=== PATIENT | male | born 1955 | race Caucasian/White ===

== ENCOUNTER 2017-01-06 14:57 | Observation (INO) | payer BC, OTHER ==
[~2017-01-06] VITALS: Ht 188 cm; Wt 110.0 kg
[~2017-01-06 14:57] MED LIST: ASPI81 PO; CARV6.25 PO; DICL25TA PO; DOCU1CAP39 PO; GABA300C3 PO; GLIP10TA6 PO; HYDR10SO PO; LACT PO; LISI5 PO; LOTR15T TOPICAL; NOVOLOGMXP SQ; PRAV20TA PO; SITA100 PO; [UNRECOGNIZED DRUG - CODE] LEFT EAR
[2017-01-06 14:59] VITALS: BP 117/60; PULSE 82; RESP 18; TEMP 97.7; O2SAT 97
--- NOTE | 2017-01-06 15:32 | PD ---
Physical Exam Time Seen by Provider: 15:29 Narrative 61yo M c/o SOB x 4months. L sided chest pain and numbness of L arm x 2 days ago. Took a nitro and was fine the next morning. Reports a little chest pain now. No acute distress in triage. Speaking full sentences w/o difficulty. Patient stable. Patient seen in triage. Awaiting bed placement. Data Data Last Documented VS Vital Signs Date Time Temp Pulse Resp B/P Pulse Ox O2 Delivery O2 Flow Rate FiO2 01/06/17 14:59 97.7 82 18 117/60 97 MDM Supervised Visit with CARISSA: Adenike Stephens Jan 06, 2017 15:32
--- NOTE | 2017-01-06 17:28 | PD ---
HPI Chief Complaint: Respiratory Symptoms Time Seen by Provider: 17:28 Travel History International Travel<30 days: No Contact w/Intl Traveler<30days: No Traveled to known affect area: No History of Present Illness HPI 61-year-old male with history of HTN, DM, GERD, chronic bronchitis, right BKA, [place] in October 2016 (S/P stents 2) presents to the ED for evaluation of 3-4 month history of shortness of breath, worsened over the last week. Also endorses a tightness of the chest, left chest pain when lying down, increased GERD symptoms and postnasal drip. He denies radiation of the pain, fever, chills, diaphoresis, nausea or vomiting. He takes a daily aspirin. PFSH Past Medical History Hx Anticoagulant Therapy: Yes Arthritis: No Asthma: No Autoimmune Disease: No Anxiety: No Depression: No Heart Rhythm Problems: No Cancer: No Cardiovascular Problems: Yes (HTN ) High Cholesterol: No Chemotherapy: No Chest Pain: No Congestive Heart Failure: No COPD: No Cerebrovascular Accident: No Diabetes: Yes Diminished Hearing: No Endocrine: Yes GERD: No Genitourinary: No Headaches: Yes Hiatal Hernia: No Hypertension: Yes Immune Disorder: No Implanted Vascular Access Dvce: No Kidney Stones: No Musculoskeletal: No Neurologic: No Psychiatric: No Reproductive: No Respiratory: Yes (CHRONIC BRONCHITIS ) Integumentary: Yes (ECZEMA) Migraines: No Radiation Therapy: No Renal Failure: No Seizures: No Sickle Cell Disease: No Thyroid Disease: No Ulcer: No Past Surgical History Abdominal Surgery: No AICD: No Arteriovenous Shunt: No Cardiac Surgery: No Ear Surgery: No Endocrine Surgery: No Eye Surgery: Yes (cataract ) Genitourinary Surgery: No Gynecologic Surgery: No Insulin Pump: No Joint Replacement: Yes (miniscus repair) Neurologic Surgery: No Oral Surgery: No Pacemaker: No Thoracic Surgery: No Other Surgery: Yes (RBKA 01/28) Social History Alcohol Use: No Tobacco Use: No Substance Use: No Allergies-Medications (Allergen,Severity, Reaction): Coded Allergies: Levaquin (Verified Allergy, Severe, hives, 01/06/17) *MDRO Multi-Drug Resistant Organism (Verified Allergy, Unknown, 03/17/16) MRSA (foot wound) - 10/03/13; MRSA (leg-02/2016) 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 Effient (Prasugrel) 10 Mg Tab 10 Mg PO DAILY Metformin (Metformin HCl) 1,000 Mg Tab 1,000 Mg PO BIDPC With meals Glipizide 10 Mg Tab 10 Mg PO BIDAC Take 30 minutes before a meal Aspirin 81 Mg Chew 81 Mg CHEW DAILY Review of Systems Except as stated in HPI: all other systems reviewed are Neg Physical Exam Narrative GENERAL: Well-nourished, well-developed obese white male in no acute distress. SKIN: Focused skin assessment warm/dry. HEAD: Normocephalic. EYES: No scleral icterus. No injection or drainage. NECK: Supple, trachea midline. No JVD or lymphadenopathy. CARDIOVASCULAR: Regular rate and rhythm without murmurs, gallops, or rubs. 2+ radial pulses bilaterally. RESPIRATORY: Breath sounds are distant, equal bilaterally. No accessory muscle use. GASTROINTESTINAL: Abdomen protuberant, nontender. MUSCULOSKELETAL: No cyanosis, or edema. Right BKA. BACK: Nontender without obvious deformity. No CVA tenderness. Data Data Last Documented VS Vital Signs Date Time Temp Pulse Resp B/P Pulse Ox O2 Delivery O2 Flow Rate FiO2 01/06/17 18:50 77 20 117/53 97 01/06/17 17:56 Room Air 01/06/17 14:59 97.7 Orders Electrocardiogram (01/06/17 ) Complete Blood Count With Diff (01/06/17 17:38) Comprehensive Metabolic Panel (01/06/17 17:38) B-Type Natriuretic Peptide (01/06/17 17:38) Act Partial Throm Time (Ptt) (01/06/17 17:38) Prothrombin Time / Inr (Pt) (01/06/17 17:38) Ckmb (Isoenzyme) Profile (01/06/17 17:38) Troponin I (01/06/17 17:38) Urinalysis - C+S If Indicated (01/06/17 17:38) Iv Access Insert/Monitor (01/06/17 17:38) Ecg Monitoring (01/06/17 17:38) Oximetry (01/06/17 17:38) Chest, Single Ap (01/06/17 17:38) Sodium Chloride 0.9% Flush (Ns Flush) (01/06/17 17:45) CKMB (01/06/17 17:55) CKMB% (01/06/17 17:55) Place In Observation (01/06/17 20:23) Activity Bed Rest With Brp (01/06/17 20:23) Vital Signs (Adult) Q4H (01/06/17 20:23) Cardiac Rhythm .As Directed (01/06/17 20:23) Notify Dr: Other .PRN (01/06/17 20:23) Notify Parameters (01/06/17 20:23) Resp Oxygen Nasal Cannula (01/06/17 ) Ckmb (Isoenzyme) Profile (01/06/17 20:23) Ckmb (Isoenzyme) Profile (01/06/17 23:23) Troponin I (01/06/17 20:23) Troponin I (01/06/17 23:23) Electrocardiogram (01/06/17 20:23) Electrocardiogram (01/06/17 23:23) ^ Obtain (01/06/17 20:23) Sodium Chloride 0.9% Flush (Ns Flush) (01/06/17 20:30) Sodium Chloride 0.9% Flush (Ns Flush) (01/06/17 21:00) [employer] Specialist / Telemetry [id number].[id number] (01/06/17 20:23) Sodium Chlor 0.9% 1000 Ml Inj (Ns 1000 M (01/06/17 20:30) Admit Order (Ed Use Only) (01/06/17 20:26) Labs Laboratory Tests Test 01/06/17 17:55 White Blood Count 8.5 TH/MM3 Red Blood Count 4.42 MIL/MM3 Hemoglobin 13.1 GM/DL Hematocrit 38.8 % Mean Corpuscular Volume 87.8 FL Mean Corpuscular Hemoglobin 29.7 PG Mean Corpuscular Hemoglobin 33.9 % Concent Red Cell Distribution Width 15.0 % Platelet Count 124 TH/MM3 Mean Platelet Volume 8.5 FL Neutrophils (%) (Auto) 68.4 % Lymphocytes (%) (Auto) 21.6 % Monocytes (%) (Auto) 7.5 % Eosinophils (%) (Auto) 1.8 % Basophils (%) (Auto) 0.7 % Neutrophils # (Auto) 5.8 TH/MM3 Lymphocytes # (Auto) 1.8 TH/MM3 Monocytes # (Auto) 0.6 TH/MM3 Eosinophils # (Auto) 0.2 TH/MM3 Basophils # (Auto) 0.1 TH/MM3 CBC Comment DIFF FINAL Differential Comment Prothrombin Time 10.8 SEC Prothromb Time International 1.0 RATIO Ratio Activated Partial 26.3 SEC Thromboplast Time Sodium Level 137 MEQ/L Potassium Level 5.0 MEQ/L Chloride Level 104 MEQ/L Carbon Dioxide Level 23.2 MEQ/L Anion Gap 10 MEQ/L Blood Urea Nitrogen 29 MG/DL Creatinine 1.77 MG/DL Estimat Glomerular Filtration 39 ML/MIN Rate Random Glucose 300 MG/DL Calcium Level 9.0 MG/DL Total Bilirubin 0.3 MG/DL Aspartate Amino Transf 42 U/L (AST/SGOT) Alanine Aminotransferase 43 U/L (ALT/SGPT) Alkaline Phosphatase 101 U/L Total Creatine Kinase 203 U/L Creatine Kinase MB 3.2 NG/ML Troponin I LESS THAN 0.02 NG/ML B-Type Natriuretic Peptide 28 PG/ML Total Protein 6.8 GM/DL Albumin 3.4 GM/DL [facility] Medical Decision Making Medical Screen Exam Complete: Yes Emergency Medical Condition: Yes Interpretation(s) EKG rate 78, sinus rhythm. RI interval 135, QRS 94, QTC 403. Normal axis. T- wave depression in V3 through V6, all old as compared to previous EKG. Reviewed by Dr. Holman. Differential Diagnosis COPD versus pneumonia versus deconditioning versus ACS versus PE versus other Narrative Course 61-year-old male with history of HTN, DM, GERD, chronic bronchitis, right BKA, [place] in October 2016 (S/P stents 2) presents to the ED for evaluation of 3-4 month history of shortness of breath, worsened over the last week. Also endorses a tightness of the chest, left chest pain when lying down, increased GERD symptoms and postnasal drip. He denies radiation of the pain, fever, chills, diaphoresis, nausea or vomiting. He takes a daily aspirin. Vitals reviewed. Physical exam reveals an obese white male in no acute distress. No discernible M/R/G. Breath sounds distant but clear. Abdomen protuberant, nontender. Right BKA with well-healed stump, no signs of infection. No edema of the left leg. Patient was placed on continuous monitoring. IV was established. CBC: WBC 8.5, 1113.1. INR 1.0. CMP: BUN 29, creatinine 1.77. Review of record reveals baseline creatinine 1.09. Cardiac enzymes negative 1. BNP 28: CXR no acute disease per radiology read. EKG as above. Records requested from the outside hospital regarding the patient's recent [place] and stent placement. Patient was administered a liter bolus of normal saline, by mouth glipizide and metformin. In light of his risk factors I feel serial cardiac enzymes and EKGs are warranted. Patient will be admitted to the [facility] for further evaluation. Please see their notes for disposition. Ingrid Myers Jan 06, 2017 17:28 Ingrid Myers Jan 06, 2017 17:28
[2017-01-06] MEDS ORDERED: SODIUM CHLORIDE 0.9% FLUSH 10 ML FLUSH IVF PRN (17:45)
[2017-01-06 17:56] VITALS: O2SAT 97
--- NOTE | 2017-01-06 17:59 | RADRPT ---
EXAM DATE/TIME: 01/06/2017 17:50 [place] COMPARISON: CHEST SINGLE AP, March 17, 2016, 13:01. INDICATIONS : Short of breath MEDICAL HISTORY : Diabetes mellitus type II. SURGICAL HISTORY : picc line ENCOUNTER: Initial ACUITY: 1 day PAIN SCORE: 4/10 LOCATION: Left chest FINDINGS: A single view of the chest demonstrates the lungs to be symmetrically aerated without evidence of mas s, infiltrate or effusion. The cardiomediastinal contours are unremarkable. Osseous structures are intact. There are multiple overlying electrocardiogram leads. CONCLUSION: No acute disease. Gamaliel Del Rosario MD on January 06, 2017 at 17:57 Board Certified Radiologist. This report was verified electronically.
[2017-01-06 18:27] LABS: AUTOMATED NEUTROPHIL # 5.8 TH/MM3 (1.8-7.7); BASOPHIL # 0.1 TH/MM3 (0-0.2); BASOPHIL % 0.7 % (0.0-2.0); EOSINOPHIL # 0.2 TH/MM3 (0-0.4); EOSINOPHIL % 1.8 % (0.0-4.0); HEMATOCRIT 38.8 % (39.0-51.0); HEMO FLAGS DIFF FINAL; LYMPH % 21.6 % (9.0-44.0); LYMPHOCYTE # 1.8 TH/MM3 (1.0-4.8); MEAN CELL VOLUME 87.8 FL (80.0-100.0); MEAN CORPUSCULAR HEMOGLOBIN 29.7 PG (27.0-34.0); MEAN CORPUSCULAR HGB CONC 33.9 % (32.0-36.0); MONO % 7.5 % (0.0-8.0); NEUT % 68.4 % (16.0-70.0); PLATELET COUNT 124 TH/MM3 (150-450); RED BLOOD COUNT 4.42 MIL/MM3 (4.50-5.90); WHITE BLOOD COUNT 8.5 TH/MM3 (4.0-11.0)
[2017-01-06 18:37] LABS: APTT (PATIENT) 26.3 SEC (24.3-30.1); PROTHROMBIN TIME - PATIENT 10.8 SEC (9.8-11.6)
[2017-01-06] MEDS ORDERED: NOVOLOGP2 SQ (18:49)
[2017-01-06] MEDS ORDERED: ASPI81CH CHEW (18:49)
[2017-01-06] MEDS ORDERED: PRAV20TA2 PO (18:49)
[2017-01-06] MEDS ORDERED: METF1000 PO (18:49)
[2017-01-06] MEDS ORDERED: LISI-515 PO (18:49)
[2017-01-06] MEDS ORDERED: NOVOLOGMXP SQ (18:49)
[2017-01-06] MEDS ORDERED: PRAS10TA PO (18:49)
[2017-01-06] MEDS ORDERED: GLIP10TA6 PO (18:49)
[2017-01-06 18:50] VITALS: BP 117/53; PULSE 77; RESP 20; O2SAT 97
--- NOTE | 2017-01-06 18:58 | PD ---
Data Data Last Documented VS Vital Signs Date Time Temp Pulse Resp B/P Pulse Ox O2 Delivery O2 Flow Rate FiO2 01/06/17 18:50 77 20 117/53 97 01/06/17 17:56 Room Air 01/06/17 14:59 97.7 Orders Electrocardiogram (01/06/17 ) Complete Blood Count With Diff (01/06/17 17:38) Comprehensive Metabolic Panel (01/06/17 17:38) B-Type Natriuretic Peptide (01/06/17 17:38) Act Partial Throm Time (Ptt) (01/06/17 17:38) Prothrombin Time / Inr (Pt) (01/06/17 17:38) Ckmb (Isoenzyme) Profile (01/06/17 17:38) Troponin I (01/06/17 17:38) Urinalysis - C+S If Indicated (01/06/17 17:38) Iv Access Insert/Monitor (01/06/17 17:38) Ecg Monitoring (01/06/17 17:38) Oximetry (01/06/17 17:38) Chest, Single Ap (01/06/17 17:38) Sodium Chloride 0.9% Flush (Ns Flush) (01/06/17 17:45) Labs Laboratory Tests Test 01/06/17 17:55 White Blood Count 8.5 TH/MM3 Red Blood Count 4.42 MIL/MM3 Hemoglobin 13.1 GM/DL Hematocrit 38.8 % Mean Corpuscular Volume 87.8 FL Mean Corpuscular Hemoglobin 29.7 PG Mean Corpuscular Hemoglobin 33.9 % Concent Red Cell Distribution Width 15.0 % Platelet Count 124 TH/MM3 Mean Platelet Volume 8.5 FL Neutrophils (%) (Auto) 68.4 % Lymphocytes (%) (Auto) 21.6 % Monocytes (%) (Auto) 7.5 % Eosinophils (%) (Auto) 1.8 % Basophils (%) (Auto) 0.7 % Neutrophils # (Auto) 5.8 TH/MM3 Lymphocytes # (Auto) 1.8 TH/MM3 Monocytes # (Auto) 0.6 TH/MM3 Eosinophils # (Auto) 0.2 TH/MM3 Basophils # (Auto) 0.1 TH/MM3 CBC Comment DIFF FINAL Differential Comment Prothrombin Time 10.8 SEC Prothromb Time International 1.0 RATIO Ratio Activated Partial 26.3 SEC Thromboplast Time [facility] Supervised Visit with CARISSA: Yes Narrative Course I, Dr. Rain, have reviewed the advance practice practioner's documentation and am in agreement, met with the patient face to face, made the diagnosis, and the medical decision making was done by me. *My assessment and Findings: 61-year-old male with history of CAD with recent stent 2 in October 2016, DM, GERD here with 4 months of shortness of breath increasing over the last 1-2 weeks. He's had some postnasal drip with a slight productive cough, states that this is primarily the phlegm that is dripping down from the posterior nasopharynx. Notes some left-sided chest pain, pressure. This is made worse with laying on the left side. Patient states that any exertion makes her dyspneic. Patient is obese, lung sounds are decreased throughout, but clear. No peripheral edema. Differential includes ACS, bronchitis, postnasal drip, pneumonia, GERD, atypical chest pain. Twelve-lead EKG shows chronic changes, T- wave inversions in V2, 3, 4, 1 and aVL. These are all old. No new changes. Chest x-ray unremarkable. He should take aspirin prior to arrival today and is pain-free at this time. Laboratory workup pending, but given his history would admit for serial cardiac enzymes if negative. Agustina Rain MD Jan 06, 2017 18:58
[2017-01-06 18:59] LABS: ALKALINE PHOSPHATASE 101 U/L (45-117); ALT (GPT) 43 U/L (12-78); ANION GAP 10 MEQ/L (5-15); AST (GOT) 42 U/L (15-37); BICARBONATE 23.2 MEQ/L (21.0-32.0); BLOOD UREA NITROGEN 29 MG/DL (7-18); CHLORIDE 104 MEQ/L (98-107); CREATINE KINASE 203 U/L (39-308); GLOMERULAR FILTRATION RATE 39 ML/MIN (>89); SODIUM (NA) 137 MEQ/L (136-145); TOTAL BILIRUBIN ADULT 0.3 MG/DL (0.2-1.0)
[2017-01-06 19:12] LABS: CKMB 3.2 NG/ML (0.5-3.6)
[2017-01-06] MEDS ORDERED: SODIUM CHLOR 0.9% 1000 ML INJ 1,000 ML IV ONE (20:30)
[2017-01-06] MEDS ORDERED: SODIUM CHLORIDE 0.9% FLUSH 10 ML FLUSH IV FLUSH PRN (20:30)
[2017-01-06] MEDS ORDERED: metFORMIN HCL 500 MG TAB PO ONE (20:45)
[2017-01-06] MEDS ORDERED: glipiZIDE 10 MG TAB PO ONE (20:45)
[2017-01-06 20:56] VITALS: BP 104/54; PULSE 76; RESP 18; TEMP 98.5; O2SAT 97
[2017-01-06] MEDS: SODIUM CHLORIDE 0.9% FLUSH 10 ML FLUSH IV FLUSH SCH (21:00)
[2017-01-06 22:01] LABS: CREATINE KINASE 178 U/L (39-308)
[2017-01-06 22:11] LABS: BLOOD, URINE NEG (NEG); COMMENT (UR) CULT NOT INDICATED; CULTURE IF INDICATED CULT NOT INDICATED; GLUCOSE,URINE 1000 mg/dL (NEG); HYALINE CAST, URINE 1 /lpf (RARE); KETONE, URINE NEG (NEG); MUCUS URINE FEW /lpf (OCC); NITRITE,URINE NEG (NEG); SQUAMOUS EPITHELIAL CELL URINE <1 /hpf (0-5); URINE COLOR YELLOW (YELLW/STRAW)
[2017-01-06 22:14] LABS: CKMB 2.9 NG/ML (0.5-3.6)
[2017-01-06 23:12] VITALS: PULSE 78
[2017-01-06 23:16] VITALS: BP 144/67; PULSE 76; RESP 16; TEMP 97.7; O2SAT 98
[2017-01-07 01:26] LABS: CREATINE KINASE 215 U/L (39-308)
[2017-01-07 01:45] LABS: CKMB 3.4 NG/ML (0.5-3.6)
[2017-01-07 04:04] VITALS: PULSE 84
[2017-01-07 04:28] VITALS: BP 111/71; PULSE 81; RESP 18; O2SAT 97
[2017-01-07 08:12] VITALS: O2SAT 98
[2017-01-07 08:25] VITALS: BP 154/83; PULSE 63; RESP 18; TEMP 98.8; O2SAT 99
[2017-01-07 08:35] VITALS: PULSE 74
--- NOTE | 2017-01-07 08:42 | EKG ---
Date Performed: 01/06/2017 Time Performed: 23:27:49 PTAGE: 61 years EKG: Sinus rhythm ST/T-WAVE ABNORMALITY, CONSIDER ANTEROLATERAL ISCHEMIA ABNORMAL ECG NO PREVIOUS TRACING DOCTOR: Frederick Arauz Interpretating Date/Time 01/07/2017 08:39:47
--- NOTE | 2017-01-07 08:46 | EKG ---
Date Performed: 01/06/2017 Time Performed: 20:57:55 PTAGE: 61 years EKG: Sinus rhythm ST/T-WAVE ABNORMALITY, CONSIDER ANTEROLATERAL ISCHEMIA ABNORMAL ECG PREVIOUS TRACING : 01/06/2017 15.53 No significant change from previous tracing noted. DOCTOR: Frederick Arauz Interpretating Date/Time 01/07/2017 08:45:44
--- NOTE | 2017-01-07 08:59 | EKG ---
Date Performed: 01/06/2017 Time Performed: 15:53:56 PTAGE: 61 years EKG: Sinus rhythm T-WAVE ABNORMALITY, CONSIDER ANTEROLATERAL ISCHEMIA ABNORMAL ECG PREVIOUS TRACING : 12/18/2015 16.52 No significant change from previous tracing noted. DOCTOR: Frederick Arauz Interpretating Date/Time 01/07/2017 08:57:43
[2017-01-07] MEDS ORDERED: PRASUGREL 10 MG TAB PO SCH (09:00)
[2017-01-07] MEDS ORDERED: ASPIRIN 81 MG CHEW TAB CHEW SCH (09:00)
[2017-01-07] MEDS ORDERED: LISINOPRIL 20 MG TAB PO SCH (09:00)
[2017-01-07] MEDS ORDERED: PRAVASTATIN SOD 20 MG TAB PO SCH (09:00)
--- NOTE | 2017-01-07 09:16 | HHI.HP ---
[facility] Primary Care Physician Richard Restrepo DO Chief Complaint Shortness of breath and chest pain History of Present Illness This is a 61-year-old male that presents to the ED to evaluate the chest discomfort. He states that he had an SD in October of this year at [facility]. He had an abnormal stress test led to a cardiac catheterization resulting in 2 stents. He afterwards followed with Dr. Barrera because of insurance issues started to follow Dr. Melissa. States he recently saw Dr. melissa. Patient complains of having shortness of breath with exertion over the last couple weeks. He states that yesterday it was occurring with just walking a few steps from his car. He also is having a discomfort in the left upper chest that will last for an hour but was intermittent throughout the day. He states that that discomfort does not feel similar to when he needed a stent. That discomfort was much more intense, it radiated up his neck and down his left arm. This did not occur yesterday. He also states during his SD he was nauseous and sweaty. He was short of breath with it but that was different than what was yesterday. Review of Systems General: Patient denies fevers, chills recent, and recent travel HEENT: Patient denies headache, sore throat, difficulty swallowing. Cardiovascular: Has the chest discomfort as mentioned above. Denies sensation of heart beating rapidly or irregularly. No syncope. Denies diaphoresis. Respiratory: He has been short of breath. Denies inspirational chest discomfort. Denies coughing wheezing or hemoptysis. GI: Patient denies nausea, vomiting, diarrhea, abdominal pain, bloody stools. Musculoskeletal: Patient denies joint pain or edema. Denies calf pain or edema. Neurovascular: Patient denies numbness, tingling, weakness in extremities. Denies headache. Endocrine: Denies polyuria and polydipsia. Hematologic: Denies easy bruising. Skin: Denies rash or itching. 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 Hypertension, diabetes, hyperlipidemia, GERD, right [id number] amputation. Past Surgical History Right below the knee amputation. Cardiac catheterization with stenting. Reported Medications Reported Meds & Active Scripts Active Reported Lisinopril 20 Mg Tab 20 Mg PO DAILY Pravastatin 20 Mg Tab 20 Mg PO DAILY Novolog Mix 70-30 Inj (Insulin Aspart Prota 70%/Aspart 30%) 1,000 Unit/10 Ml Vial 45 Units SQ TIDAC Novolog Inj (Insulin Aspart) 1,000 Unit/10 Ml Vial 0 SQ DIRECTED Sliding Scale as directed. Effient (Prasugrel) 10 Mg Tab 10 Mg PO DAILY Metformin (Metformin HCl) 1,000 Mg Tab 1,000 Mg PO BIDPC With meals Glipizide 10 Mg Tab 10 Mg PO BIDAC Take 30 minutes before a meal Aspirin 81 Mg Chew 81 Mg CHEW DAILY Active Ordered Medications Current Medications Medications (Trade) Dose Ordered Sig/Walker Route Start Time Stop Time Status Last Admin (NS Flush) 2 ml UNSCH PRN IVF 01/06/17 17:45 (NS Flush) 2 ml UNSCH PRN IV FLUSH 01/06/17 20:30 (NS Flush) 2 ml BID IV FLUSH 01/06/17 21:00 01/06/17 21:00 (Aspirin Chew) 81 mg DAILY CHEW 01/07/17 09:00 (Prinivil) 20 mg DAILY PO 01/07/17 09:00 (Effient) 10 mg DAILY PO 01/07/17 09:00 (Pravachol) 20 mg DAILY PO 01/07/17 09:00 Family History There is family history of CAD. Social History Patient does not smoke. Denies alcohol use or illicit drug use. Physical Exam Vital Signs Vital Signs Date Time Temp Pulse Resp B/P Pulse Ox O2 Delivery O2 Flow Rate FiO2 01/07/17 08:35 74 01/07/17 08:25 98.8 63 18 154/83 99 01/07/17 04:28 81 18 111/71 97 01/07/17 04:04 84 01/06/17 23:16 97.7 76 16 144/67 98 01/06/17 23:12 78 01/06/17 20:56 98.5 76 18 104/54 97 Room Air 01/06/17 18:50 77 20 117/53 97 01/06/17 17:56 97 Room Air 01/06/17 17:27 Room Air 01/06/17 14:59 97.7 82 18 117/60 97 Physical Exam GENERAL: This is a well-nourished, well-developed patient, in no apparent distress. Patient speaks in clear complete sentences. Patient is pleasant. HEENT: Head is atraumatic and normocephalic. Neck is supple without lymphadenopathy and trachea is midline. No JVD or carotid bruits. CARDIOVASCULAR: Grade 2 systolic murmur left sternal border. Regular rate and rhythm without gallops or rubs. RESPIRATORY: Clear to auscultation. Breath sounds equal bilaterally. No wheezes , rales, or rhonchi. Chest wall is nontender. No use of accessory muscles. GASTROINTESTINAL: Abdomen is nontender, nondistended. Abdomen soft. No obvious pulsatile mass or bruit. No CVA tenderness. Strong femoral pulses bilaterally. Normal bowel sounds in all quadrants. MUSCULOSKELETAL: Patient is moving upper and lower extremities freely. No calf tenderness or edema, no Homans sign. Strong pulses in upper and lower extremities. NEUROLOGICAL: Patient is alert and oriented. Cranial nerves 2-12 are grossly intact. No focal deficits and speech is clear. SKIN: No rash and turgor is normal. Laboratory Laboratory Tests Test 01/06/17 01/06/17 01/07/17 17:55 20:50 00:10 White Blood Count 8.5 Red Blood Count 4.42 Hemoglobin 13.1 Hematocrit 38.8 Mean Corpuscular Volume 87.8 Mean Corpuscular Hemoglobin 29.7 Mean Corpuscular Hemoglobin 33.9 Concent Red Cell Distribution Width 15.0 Platelet Count 124 Mean Platelet Volume 8.5 Neutrophils (%) (Auto) 68.4 Lymphocytes (%) (Auto) 21.6 Monocytes (%) (Auto) 7.5 Eosinophils (%) (Auto) 1.8 Basophils (%) (Auto) 0.7 Neutrophils # (Auto) 5.8 Lymphocytes # (Auto) 1.8 Monocytes # (Auto) 0.6 Eosinophils # (Auto) 0.2 Basophils # (Auto) 0.1 CBC Comment DIFF FINAL Differential Comment Prothrombin Time 10.8 Prothromb Time International 1.0 Ratio Activated Partial 26.3 Thromboplast Time Sodium Level 137 Potassium Level 5.0 Chloride Level 104 Carbon Dioxide Level 23.2 Anion Gap 10 Blood Urea Nitrogen 29 Creatinine 1.77 Estimat Glomerular Filtration 39 Rate Random Glucose 300 Calcium Level 9.0 Total Bilirubin 0.3 Aspartate Amino Transf 42 (AST/SGOT) Alanine Aminotransferase 43 (ALT/SGPT) Alkaline Phosphatase 101 Total Creatine Kinase 203 178 215 Creatine Kinase MB 3.2 2.9 3.4 Troponin I LESS THAN 0.02 LESS THAN 0.02 LESS THAN 0.02 B-Type Natriuretic Peptide 28 Total Protein 6.8 Albumin 3.4 Urine Color YELLOW Urine Turbidity CLEAR Urine pH 5.0 Urine Specific Saxon 1.030 Urine Protein NEG Urine Glucose (UA) 1000 Urine Ketones NEG Urine Occult Blood NEG Urine Nitrite NEG Urine Bilirubin NEG Urine Urobilinogen LESS THAN 2.0 Urine Leukocyte Esterase NEG Urine RBC LESS THAN 1 Urine WBC LESS THAN 1 Urine Squamous Epithelial <1 Cells Urine Hyaline Casts 1 Urine Mucus FEW Microscopic Urinalysis Comment CULT NOT INDICATED Result Diagram: 01/06/17 1755 01/06/17 1755 Imaging Last 24 hours Impressions Chest X-Ray 01/06/17 1738 Signed Impressions: Service Date/Time: Friday, January 06, 2017 17:50 - CONCLUSION: No acute disease. Gamaliel Del Rosario MD Course EKGs have sinus rhythm with anterior T-wave changes are nonspecific as well as lateral ST-T changes. Assessment and Plan Assessment and Plan * Chest pain: Patient had serial cardiac enzymes and EKGs for ruling out purposes. He has been seen by Dr. Webber cardiology in the chest pain center. I spoken with the patient's timber supervisor Dr. Melissa and he is going to evaluate the patient and then determine what further testing needs to be done. * CAD: We'll continue to evaluate. Patient will be also evaluated by Dr. Melissa. * Hypertension: Continue current medication. * Hyperlipidemia: Continue current medication. * Diabetes: We'll hold his oral hypoglycemics and cover with sliding scale insulin coverage. He will need to follow diabetic diet, however he'll remain nothing by mouth until being evaluated by Dr. Melissa. * Renal insufficiency: Patient was given IV hydration in the ED. We'll get a repeat BMP in the morning. Patient is stable at this time. He is agreeable to this plan. Atul Lopez Jan 07, 2017 09:16
[2017-01-07] MEDS: SODIUM CHLORIDE 0.9% FLUSH 10 ML FLUSH IV FLUSH SCH (09:44)
[2017-01-07] MEDS ORDERED: ISOS60TA PO (10:31)
--- NOTE | 2017-01-07 10:32 | HHI.DCPOC ---
Discharge Care Plan Diagnosis: (1) Chest pain (2) CAD (coronary artery disease) (3) H/O heart artery stent (4) DM (diabetes mellitus) (5) Hypertension (6) Hyperlipidemia (7) Renal insufficiency Goals to Promote Your Health * To prevent worsening of your condition and complications * To maintain your health at the optimal level Directions to Meet Your Goals Take your medications as prescribed Follow your dietary instruction Follow activity as directed Keep your appointments as scheduled Take your immunizations and boosters as scheduled If your symptoms worsen call your PCP, if no PCP go to Urgent Care Center or Emergency Room Smoking is Dangerous to Your Health. Avoid second hand smoke Call the 24-hour hour crisis hotline for domestic abuse at Atul Lopez Jan 07, 2017 10:32
[2017-01-07] MEDS ORDERED: ISOSORBIDE MONONITRATE 60 MG TAB PO ONE (10:45)
--- NOTE | 2017-01-07 11:14 | MB ---
cc: SINCERE SHERIFF MD DATE OF CONSULTATION 01/07/2017 REASON FOR CONSULTATION Chest pain HISTORY OF PRESENT ILLNESS This is a 61-year-old gentleman who I just recently established in the outpatient setting. He had previously presented back in October to [facility] with a [id number] myocardial infarction. He underwent cardiac catheterization with Dr. Meraz. At that time, he had severe ostial circumflex stenosis with rather diffuse small vessel distal disease. He underwent percutaneous intervention with two drug-eluting stents to the ostium of the circumflex. Reviewing the prior films, there did appear to be some plaque shift into the proximal left anterior descending and possibly distal left main coronary artery. He had then followed up with Dr. Barrera, but secondary to his change in insurance with [facility], he came to establish with me. In the office, he seemed to be doing fairly well. He had some exertional shortness of breath, but denied any venu chest pain. We did an outpatient echocardiogram which showed a normal ejection fraction with mild aortic valve stenosis. He presented now to the emergency department at [place] secondary to an episode of chest pain associated with exertional dyspnea. He has been compliant with his medication. He was taking Plavix. His troponin was negative and I was consulted for further recommendations. PAST MEDICAL HISTORY As described above. 1. History of coronary disease with percutaneous intervention with drug-eluting stent to the circumflex coronary Artery. 2. Hypertension 3. Diabetes 4. Hyperlipidemia 5. Gastroesophageal reflux disease 6. Right [id number] amputation REPORTED MEDICATIONS 1. Lisinopril 2. Pravastatin 3. Aspirin 4. Metformin 5. Glipizide 6. Effient 7. Isosorbide 60 mg a day FAMILY HISTORY Denies any family history of early coronary disease or sudden cardiac . SOCIAL HISTORY Denies any alcohol, tobacco or drug use. REVIEW OF SYSTEMS A 12-point review of systems was performed and is negative unless otherwise as noted in the history of present illness. PHYSICAL EXAMINATION VITAL SIGNS: Temperature 98, pulse 63, blood pressure 154/83 mmHg. GENERAL: Alert and oriented x3 in no acute distress. HEENT: Exam shows pupils reactive to light and accommodation. Extraocular movements are intact. NECK: No elevation or jugular venous discussion. No thyromegaly. No thyromegaly or lymphadenopathy. No carotid bruits. LUNGS: Clear to auscultation bilaterally. CARDIOVASCULAR: Regular rate and rhythm with a 2/6 systolic murmur at the left sternal border. ABDOMEN: Exam is nontender and nondistended with good bowel sounds. No hepatosplenomegaly. EXTREMITIES: No clubbing, cyanosis or edema. Good peripheral pulses. NEUROLOGIC: Cranial nerves intact. Motor and sensory grossly intact. LABORATORY DATA WBC 8.5, hemoglobin 13.1, platelet count 124, INR is 1. Sodium 137, potassium 5, chloride 104, BUN is 29, creatinine 1.77, troponins negative x3. Electrocardiogram has a sinus rhythm with T-wave inversions in the anterior/anterolateral precordial leads. ASSESSMENT 1. Chest pain 2. Shortness of breath 3. Mild aortic valve stenosis 4. Coronary artery disease with prior percutaneous intervention. 5. Diabetes 6. Hypertension 7. Hyperlipidemia PLAN I reviewed his cardiac catheterization films from October 2006 at [facility] in detail. He underwent a drug-eluting stent to the ostium of the circumflex. At the completion of the procedure, there was some plaque shifting into the origin of the left anterior descending and distal left main. I am not sure if it appeared to be obstructive, but there was DAYO-3 flow throughout. He has otherwise very small vessel distal disease in both the LAD and the circumflex coronary artery. The right coronary has minimal luminal irregularities. His symptoms sound somewhat atypical, although he reports exertional shortness of breath. His last echocardiogram only showed mild aortic valve disease with normal ejection fraction. Given his complex anatomy, I do not see any reason to perform a nuclear stress test. Also given his recent angiogram and known small vessel disease and renal insufficiency, I would like to avoid any potential invasive strategy. He is on isosorbide 60 mg a day. We will increase that to twice daily and follow him in an outpatient setting. If he continues to have recurrent symptoms, then we will be forced to perform a coronary angiogram and consider higher risk PCI. Anticipate discharge today. MD FABRIZIO Elizabeth/CARLOS /10:30 AM /11:00 AM
== END 2017-01-07 11:55 | disposition home or self-care (01) ==
LOC: NEPE 14:57 → INTOOBSV 20:27 → NEDA 20:27 → NEPHCDU 22:38
PROVIDERS: ADMIT Internal Medicine Cardiovascular Disease; ATTEND Internal Medicine Cardiovascular Disease
DX: R07.89 Other chest pain (principal); I25.10 Atherosclerotic heart disease of native coronary artery without angina pectoris; I10 Essential (primary) hypertension; E78.5 Hyperlipidemia, unspecified; I35.0 Nonrheumatic aortic (valve) stenosis; I25.2 Old myocardial infarction; N28.9 Disorder of kidney and ureter, unspecified; E11.9 Type 2 diabetes mellitus without complications; I73.9 Peripheral vascular disease, unspecified; J42 Unspecified chronic bronchitis; E66.9 Obesity, unspecified; K21.9 Gastro-esophageal reflux disease without esophagitis; Z89.511 Acquired absence of right leg below knee; Z95.5 Presence of coronary angioplasty implant and graft; Z68.31 Body mass index [BMI] 31.0-31.9, adult; Z79.84 Long term (current) use of oral hypoglycemic drugs
CPT/HCPCS: 71010; 80053; 81001; 82550; 82552; 83880; 84484; 85025; 85610; 85730; 93005; 99285; G0378; J7030

== ENCOUNTER → 2017-02-26 | Day surgery (SDC) | payer OTHER ==
[~2017-02-26] MED LIST changes: -ASPI81 PO; +ASPI81CH CHEW; +ATROPINE SULFATE 1% OPHT SOLN 2 ML BTL ONE; -CARV6.25 PO; +DEXAMETHASONE SOD PHOS 4 MG/ML VIAL ONE; -DICL25TA PO; -DOCU1CAP39 PO; +EPINEPHrine HCL (1:1000) 1 MG/ML VIAL ONE; +FLURBIPROFEN 0.03% OPHT SOLN 2.5 ML BTL ONE; -GABA300C3 PO; +HYALURONIDASE/LIDOCAINE/BUPIVACAINE 11 ML SYR TL ONE; -HYDR10SO PO; +ISOS60TA PO; -LACT PO; +LACTATED RINGER'S 1000 ML INJ 1,000 ML ONE; +LISI-515 PO; -LISI5 PO; -LOTR15T TOPICAL; +METF1000 PO; +NEOMYCIN/POLYMYXIN/DEXAMETHASONE OPTH OINT 3.5 GM TUBE ONE; +NOVOLOGP2 SQ; +PHENYLEPHRINE HCL 2.5 % OPTH SOLN 15 ML BTL ONE; +PRAS10TA PO; -PRAV20TA PO; +PRAV20TA2 PO; +PROPOFOL 200 MG/20 ML AMP IV ONE; -SITA100 PO; +SODIUM CHLORIDE 0.9% INJ 10 ML ONE; +TETRACAINE 0.5% OPTH SOLN 15 ML BTL ONE; +TROPICAMIDE 1% OPHT SOLN 15 ML BTL ONE; -[UNRECOGNIZED DRUG - CODE] LEFT EAR; +ceFAZolin INJ 1,000 MG VIAL ONE
== END | disposition home or self-care (01) ==
LOC: ESDC 11:42
PROVIDERS: ATTEND Ophthalmology Retina Specialist
DX: H35.371 Puckering of macula, right eye (principal)
CPT/HCPCS: 00145; 67041; J0171; J0690; J1100; J7120